=== PATIENT | female | born 1990 | race African-American/Black ===

== ENCOUNTER 2017-01-06 06:59 | Emergency (ER) | payer BC ==
[~2017-01-06] VITALS: Ht 162.6 cm; Wt 75.5 kg
[2017-01-06 07:02] VITALS: Ht 162.6 cm; Wt 75.5 kg
[2017-01-06] MEDS ORDERED: KETOROLAC 30 MG INJ IV STA (07:40)
[2017-01-06] MEDS ORDERED: SOD CHLORIDE 0.9% 1,000 ML IV STA (07:40)
[2017-01-06 08:09] LABS: ADD SCAN DIFF NO
[2017-01-06 08:12] LABS: BASOPHILS % 0.7 % (0.0-2.0); EOSINOPHILS # 0.2 10^3/ul (0.0-0.5); EOSINOPHILS % 2.6 % (0.0-7.0); HEMATOCRIT 41.6 % (37.0-47.0); HEMOGLOBIN 13.1 g/dl (12.0-16.0); LYMPHOCYTES # 2.1 10^3/ul (0.8-2.9); LYMPHOCYTES % 35.4 % (15.0-51.0); MEAN CORPUSCULAR HEMOGLOBIN 26.6 pg (29.0-33.0); MEAN CORPUSCULAR HGB CONC 31.5 g/dl (32.0-37.0); MEAN CORPUSCULAR VOLUME 84.6 fl (82.0-101.0); MEAN PLATELET VOLUME 10.1 fl (7.4-10.4); MONOCYTE # 0.5 10^3/ul (0.3-0.9); MONOCYTES % 7.8 % (0.0-11.0); NEUTROPHIL # 3.2 10^3/ul (1.6-7.5); NEUTROPHILS % 53.3 % (39.0-77.0); PLATELET COUNT 236 10^3/UL (140-415); RED BLOOD COUNT 4.92 10^6/ul (4.20-5.40); RED CELL DISTRIBUTION WIDTH 14.8 % (11.5-14.5); WHITE BLOOD COUNT 6.1 10^3/ul (4.8-10.8)
[2017-01-06 08:17] LABS: ADD UMIC YES; URINE BILIRUBIN (Dip) NEGATIVE (NEGATIVE); URINE BLOOD (Dip) NEGATIVE (NEGATIVE); URINE COLOR LT. YELLOW (YELLOW); URINE GLUCOSE (Dip) NEGATIVE (NEGATIVE); URINE KETONES (Dip) NEGATIVE (NEGATIVE); URINE LEUKOCYTE ESTERASE (Dip) TRACE (NEGATIVE); URINE NITRITE (Dip) NEGATIVE (NEGATIVE); URINE TOTAL PROTEIN (Dip) NEGATIVE (NEGATIVE); URINE UROBILINOGEN (Dip) 1.0 E.U./dL (0.1-1.0)
[2017-01-06 08:31] LABS: SQUAMOUS EPITHELIAL CELL,UR FEW; URINE RBCS NONE SEEN /HPF (0)
[2017-01-06 08:40] LABS: ALBUMIN 4.4 g/dl (3.3-4.9); ALBUMIN/GLOBULIN RATIO 1.18; BILIRUBIN,INDIRECT 0.4 mg/dl (0-1.1); BILIRUBIN,TOTAL 0.4 mg/dl (0.2-1.3); CALCIUM 9.2 mg/dl (8.4-10.2); CREATININE 0.7 mg/dl (0.44-1.00); POTASSIUM 3.8 mmol/L (3.5-5.1); TOTAL PROTEIN 8.1 g/dl (6.1-8.1)
--- NOTE | 2017-01-06 09:12 | RADRPT ---
PROCEDURE: XR Abdomen. CLINICAL INDICATION: Abdominal pain TECHNIQUE: A single AP view of the abdomen was obtained. COMPARISON: None. FINDINGS: There is a nonobstructive bowel gas pattern. Moderate volume formed stool is seen throughout the col on. No intraperitoneal free air or pneumatosis is identified. An IUD is in place. No abnormal soft t issue calcifications are seen. The visualized portion of the lung bases are clear. The osseous str uctures are unremarkable. IMPRESSION: 1. Moderate volume formed stool throughout the colon. 2. IUD in place. RPTAT: HH .Pamela Suarez MD, MD Date Time Electronically viewed and signed by .Pamela Suarez MD, on 01/06/2017 09:12 .G/
[2017-01-06] MEDS ORDERED: POLY17PO6 PO (09:40)
[2017-01-06 10:06] VITALS: BP 122/85; PULSE 80; RESP 20; TEMP 98
--- NOTE | 2017-01-06 10:28 | ERA ---
ER Documentation Chief Complaint Date/Time DATE: 01/06/17 TIME: 10:21 Chief Complaint GENERALIZED ABDOMINAL PAIN AND BLOATED SINCE THIS MORNING HPI Patient is a 26-year-old female presents with a chief complaint generalized abdominal pain for the past 12 hours. Patient has not done anything to relieve the pain. Patient describes the pain as feeling like gas. Last bowel movement was 4 hours ago and claims that her abdomen seems distended. Patient denies fever, constipation, diarrhea, vomiting, nausea, flank pain, dysuria, hematuria , change in stool appearance. Has had similar symptoms a few years ago and was relieved with MiraLAX. ROS All systems reviewed and are negative except as per history of present illness. Medications Home Meds Active Scripts Polyethylene Glycol* (Miralax*) 17 Gm Powd.pack, 17 GM PO DAILY, #7 Prov:SURESH PENDLETON PA-C 01/06/17 Allergies Allergies: Coded Allergies: No Known Allergy (Unverified , 10/21/15) PMhx/Soc Medical and Surgical Hx: pt denies Medical Hx, pt denies Surgical Hx Hx Alcohol Use: Yes (2 shot s vodka last night) Hx Substance Use: No Hx Tobacco Use: Yes (1/2 cig) Smoking Status: Current every day smoker Physical Exam Vitals Vital Signs Date Time Temp Pulse Resp B/P Pulse Ox O2 Delivery O2 Flow Rate FiO2 01/06/17 10:06 98.0 80 20 122/85 98 Room Air 01/06/17 07:02 98.4 82 19 117/62 98 Physical Exam Const: [] Head: Atraumatic Eyes: Normal Conjunctiva ENT: Normal External Ears, Nose and Mouth. Neck: Full range of motion..~ No meningismus. Resp: Clear to auscultation bilaterally Cardio: Regular rate and rhythm, no murmurs Abd: Soft, non tender, non distended. Normal bowel sounds Skin: No petechiae or rashes Back: No midline or flank tenderness Ext: No cyanosis, or edema Neur: Awake and alert Psych: Normal Mood and Affect Result Diagram: 01/06/17 0750 01/06/17 0750 Results 24 hrs Laboratory Tests Test 01/06/17 07:50 White Blood Count 6.110^3/ul Red Blood Count 4.9210^6/ul Hemoglobin 13.1g/dl Hematocrit 41.6% Mean Corpuscular Volume 84.6fl Mean Corpuscular Hemoglobin 26.6pg Mean Corpuscular Hemoglobin Concent 31.5g/dl Red Cell Distribution Width 14.8% Platelet Count 97207^3/UL Mean Platelet Volume 10.1fl Neutrophils % 53.3% Lymphocytes % 35.4% Monocytes % 7.8% Eosinophils % 2.6% Basophils % 0.7% Nucleated Red Blood Cells % 0.0/100WBC Neutrophils # 3.210^3/ul Lymphocytes # 2.110^3/ul Monocytes # 0.510^3/ul Eosinophils # 0.210^3/ul Basophils # 0.010^3/ul Nucleated Red Blood Cells # 0.010^3/ul Urine Color LT. YELLOW Urine Clarity CLEAR Urine pH 6.5 Urine Specific [place] 1.010 Urine Ketones NEGATIVE Urine Nitrite NEGATIVE Urine Bilirubin NEGATIVE Urine Urobilinogen 1.0 E.U./dL Urine Leukocyte Esterase TRACE Urine Microscopic RBC NONE SEEN/HPF Urine Microscopic WBC 0-2/HPF Urine Squamous Epithelial Cells FEW Urine Hemoglobin NEGATIVE Urine Glucose NEGATIVE% Urine Total Protein NEGATIVE Sodium Level 136mmol/L Potassium Level 3.8mmol/L Chloride Level 102mmol/L Carbon Dioxide Level 27mmol/L Anion Gap 11 Blood Urea Nitrogen 13mg/dl Creatinine 0.70mg/dl Glucose Level 88mg/dl Calcium Level 9.2mg/dl Total Bilirubin 0.4mg/dl Direct Bilirubin 0.00mg/dl Indirect Bilirubin 0.4mg/dl Aspartate Amino Transf (AST/SGOT) 19IU/L Alanine Aminotransferase (ALT/SGPT) 25IU/L Alkaline Phosphatase 72IU/L Total Protein 8.1g/dl Albumin 4.4g/dl Globulin 3.70g/dl Albumin/Globulin Ratio 1.18 Lipase 37U/L Current Medications Medications (Trade) Dose Ordered Sig/Clara Route PRN Reason Start Time Stop Time Status Last Admin Dose Admin Sodium Chloride (NS) 1,000 ml @ 1,000 mls/hr Q1H STAT IV 01/06/17 07:40 01/06/17 08:39 DC 01/06/17 07:56 Ketorolac Tromethamine (Toradol) 30 mg ONCE STAT IV 01/06/17 07:40 01/06/17 07:45 DC 01/06/17 07:56 Procedures/[facility] Patient is 26-year-old female complaining of abdominal pain that is migrated from her epigastrium to the general abdomen. Patient has general abdominal tenderness. There is no fever no nausea vomiting. Labs obtained to rule out appendicitis/urinary tract pathology. Lab results were within normal limits. X -ray results showed mild nonobstructive bowel gas patterns. At this time I do not suspect an ectopic , ovarian cyst, PID, UTI, intestinal ischemia, peritonitis, intestinal obstruction, perforated viscus pancreatitis, appendicitis or AAA. Most likely diagnosis is mild constipation. Will prescribe MiraLAX. On repeat exam abdomen remains soft and non-tender. Pt is well appearing, and tolerates PO. Return precautions given. Departure Diagnosis: Primary Impression: Abdominal pain Qualified Code: R10.84 - Generalized abdominal pain Additional Impression: Constipation Qualified Code: K59.00 - Constipation, unspecified constipation type Condition: Stable Patient Instructions: Abdominal Pain Additional Instructions: Follow up with your PCP within the next 1-3 days for a more thorough evaluation and a possible referral to a specialist. Return the the emergency department immediately if symptoms worsen or change. If you have any questions regarding medications, ask your pharmacist or us before you leave. If any adverse reactions occur while taking your medications, discontinue the treatment and return to the emergency department immediately. Take your medications as directed, and complete the entire course of treatment. SURESH PENDLETON PA-C January 06, 2017 10:28
== END 2017-01-06 10:27 | disposition home or self-care (01) ==
LOC: FTE 06:59
DX: R10.84 Generalized abdominal pain (principal); K59.00 Constipation, unspecified; F17.210 Nicotine dependence, cigarettes, uncomplicated
CPT/HCPCS: 36415; 74000; 80053; 81001; 83690; 85025; 96374; 99284; J1885; J7030; 81003